=== PATIENT | female | born 1985 | race Caucasian/White ===

== ENCOUNTER 2016-12-27 22:34 | Emergency (ER) | payer MEDICAID ==
[~2016-12-27] VITALS: Ht 160 cm; Wt 88.0 kg
[2016-12-27 22:42] VITALS: BP 137/78; PULSE 88; RESP 18; TEMP 98.3; O2SAT 98
[2016-12-27] MEDS ORDERED: KETOROLAC TROMETHAMINE 60 MG/2 ML VIAL IM ONE (23:15)
[2016-12-27 23:30] VITALS: BP 137/78; PULSE 88; RESP 18; TEMP 98.3; O2SAT 98
== END 2016-12-27 23:30 | disposition home or self-care (01) ==
LOC: SED 22:34
DX: M25.531 Pain in right wrist (principal); E11.9 Type 2 diabetes mellitus without complications; E03.9 Hypothyroidism, unspecified
CPT/HCPCS: 96372; 99283; J1885

== ENCOUNTER 2018-12-29 12:38 | Emergency (ER) | payer MEDICAID ==
[~2018-12-29] VITALS: Ht 160 cm; Wt 83.5 kg
[2018-12-29 12:45] VITALS: BP_SYST 124
--- NOTE | 2018-12-29 12:50 | NUR ---
Patient to ER bed 02 to gown for evaluation. Side rails up.
--- NOTE | 2018-12-29 12:50 | NUR ---
patient AOx4 from home with c/o pelvic pain x 2 days. patient states she is 5 weeks , is medicated on psychotropic medications worried she may have a miscarriage. patient denies vaginal bleeding, n/v, breast tenderness or any other symptoms. patient admits to have diabeties, bipolar, major depressive disorder, schizophrenia. no other compalint or injury at this time.
--- NOTE | 2018-12-29 12:50 | NUR ---
ER Dr. Downing at bedside examining patient.
[2018-12-29] MEDS ORDERED: NACL 0.9% 1,000 ML IV ONE (13:15)
--- NOTE | 2018-12-29 13:20 | NUR ---
patient states she is feeling better. provided medication as ordered.
--- NOTE | 2018-12-29 13:20 | NUR ---
# 18 gauge angiocath placed to LAC. Use of asceptic technique. Opsite placed over site. Blood return noted. Blood for lab drawn from site. Flushed with 10 cc of normal saline. No evidence of infiltration noted. Patient tolerated well.
[2018-12-29 13:23] LABS: HEMATOCRIT 40.3 % (36-48); HEMOGLOBIN 13.4 g/dL (12.0-16.0); MEAN CORPUSCULAR HEMOGLOBIN 29 pg (27-31); MEAN CORPUSCULAR HGB CONC 33 % (32-36); MEAN CORPUSCULAR VOLUME 87 fL (79.0-98.0); PLATELET COUNT (AUTO) 231 K/uL (130-430); RED BLOOD CELL COUNT(AUTO) 4.63 MIL/uL (4.2-6.2); RED CELL DISTRIBUTION WIDTH 13.5 % (9.0-15.0); WHITE BLOOD COUNT (AUTO) 8.5 K/uL (4.8-10.8)
[2018-12-29 13:24] LABS: LYMPHOCYTES % (AUTO) 28.8 % (20.5-51.5); MONOCYTES % (AUTO) 7.4 % (1.7-9.3); NEUTROPHILS % (AUTO) 58.9 % (40.0-70.0)
[2018-12-29 13:25] LABS: BASOPHILS # (AUTO) 0.1 K/uL (0.0-0.2); BASOPHILS % (AUTO) 0.9 % (0.0-2.0); EOSINOPHILS # (AUTO) 0.3 K/uL (0.0-0.4); LYMPHOCYTES # (AUTO) 2.4 K/uL (1.0-5.5); MONOCYTES # (AUTO) 0.6 K/uL (0.0-1.0)
[2018-12-29 13:35] LABS: BILIRUBIN,URINE NEGATIVE (NEGATIVE); BLOOD, URINE NEGATIVE (NEGATIVE); CLARITY/URINE CLEAR (CLEAR); COLOR,URINE YELLOW (YELLOW); GLUCOSE,URINE 3+ (NEGATIVE); KETONES,URINE NEGATIVE (NEGATIVE); LEUKOCYTE ESTERASE ,URINE NEGATIVE (NEGATIVE); NITRITE, URINE NEGATIVE (NEGATIVE); PROTEIN URINE NEGATIVE (NEGATIVE); UROBILINOGEN,URINE 0.2 (0.2-1.0)
[2018-12-29 13:44] LABS: BACTERIA,URINE FEW /HPF (None Seen); RBC,URINE 0-3 /HPF (0-3); WBC,URINE 0-3 /HPF (0-3)
--- NOTE | 2018-12-29 14:20 | NUR ---
ER at bedside with patient providing more information regarding treatment plans and ultrasound information.
--- NOTE | 2018-12-29 15:49 | NUR ---
Went to discharge pt, not in bed. Found IV catheter in trash, catheter intact. Called pt, she states that she pulled out the IV and is on her way home. Asked her to return for discharge instructions and RX. Informed pt to follow up with PMD. Verbalized understanding, but states that she will not return to ED right now. Eloped at this time.
== END 2018-12-29 15:49 | disposition home or self-care (01) ==
LOC: SED 12:38
DX: O20.0 Threatened abortion (principal); E03.9 Hypothyroidism, unspecified; F32.9 Major depressive disorder, single episode, unspecified; E11.9 Type 2 diabetes mellitus without complications; R03.0 Elevated blood-pressure reading, without diagnosis of hypertension; Z3A.01 Less than 8 weeks gestation of pregnancy
CPT/HCPCS: 36415; 76856; 81000; 81025; 84702; 85025; 86900; 86901; 99284; J7030

== ENCOUNTER 2019-05-02 05:50 | Emergency (ER) | payer MEDICAID ==
[~2019-05-02] VITALS: Ht 160 cm; Wt 81.6 kg
[2019-05-02 05:50] VITALS: BP_SYST 157
--- NOTE | 2019-05-02 05:50 | NUR ---
Patient to ER bed 08 to gown for evaluation. Side rails up. Pt insists on being in the same room as her friend bc she has anxiety.
--- NOTE | 2019-05-02 05:55 | NUR ---
Dr. Finn notified about HR 133. Pt denies c/o C/P, feeling of palpitations or SOB. No new orders received.
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
--- NOTE | 2019-05-02 06:16 | NUR ---
ER at bedside examining patient.
[2019-05-02] MEDS ORDERED: CLINDAMYCIN PHOSPHATE 300 MG/2 ML VIAL IM ONE (06:30)
[2019-05-02 06:53] VITALS: BP_SYST 149
--- NOTE | 2019-05-02 06:54 | NUR ---
Patient given written and verbal discharge instructions and verbalizes understanding. ER MD discussed with patient the results and treatment provided. Patient in stable condition. ID arm band removed. Rx of CLEOCIN AND IBUPROFEN given. Patient educated on pain management and to follow up with PMD. Pain Scale 0/10. Opportunity for questions provided and answered. Medication side effect fact sheet provided.
== END 2019-05-02 06:54 | disposition home or self-care (01) ==
LOC: SED 05:50
DX: L03.114 Cellulitis of left upper limb (principal); F32.9 Major depressive disorder, single episode, unspecified; E11.9 Type 2 diabetes mellitus without complications; E03.9 Hypothyroidism, unspecified; F17.200 Nicotine dependence, unspecified, uncomplicated
CPT/HCPCS: 96372; 99283; J3490

== ENCOUNTER 2019-05-16 15:36 | Emergency (ER) | payer MEDICAID ==
[~2019-05-16] VITALS: Ht 160 cm; Wt 81.6 kg
[2019-05-16 15:49] VITALS: BP_SYST 131
[2019-05-16 16:39] LABS: BASOPHILS # (AUTO) 0.1 K/uL (0.0-0.2); EOSINOPHILS # (AUTO) 0.2 K/uL (0.0-0.4); EOSINOPHILS % (AUTO) 3.5 % (0.0-4.0); HEMATOCRIT 39.9 % (36-48); HEMOGLOBIN 13.3 g/dL (12.0-16.0); LYMPHOCYTES # (AUTO) 1.7 K/uL (1.0-5.5); LYMPHOCYTES % (AUTO) 24.8 % (20.5-51.5); MEAN CORPUSCULAR HEMOGLOBIN 31 pg (27-31); MEAN CORPUSCULAR HGB CONC 33 % (32-36); MEAN CORPUSCULAR VOLUME 92 fL (79.0-98.0); MONOCYTES # (AUTO) 0.4 K/uL (0.0-1.0); MONOCYTES % (AUTO) 5.4 % (1.7-9.3); NEUTROPHILS # (AUTO) 4.6 K/uL (1.8-7.7); NEUTROPHILS % (AUTO) 65.3 % (40.0-70.0); PLATELET COUNT (AUTO) 285 K/uL (130-430); RED BLOOD CELL COUNT(AUTO) 4.36 MIL/uL (4.2-6.2); RED CELL DISTRIBUTION WIDTH 13.5 % (9.0-15.0)
[2019-05-16 16:50] LABS: CALCIUM 8.3 mg/dL (8.4-11.0); CREATININE 0.55 mg/dL (0.55-1.30); POTASSIUM 4.4 mmol/L (3.5-5.1)
[2019-05-16 16:55] LABS: ALBUMIN 2.7 g/dL (3.4-4.8); TOTAL BILIRUBIN 0.3 mg/dL (0.0-1.0)
--- NOTE | 2019-05-16 17:57 | NUR ---
Patient to ER bed 4 to gown for evaluation. Side rails up. Report given to Milind MENDIOLA.
--- NOTE | 2019-05-16 18:00 | NUR ---
Pt c/o LAC wound RH cellulitis.
--- NOTE | 2019-05-16 18:15 | NUR ---
ER Dr. Carrillo at bedside examining patient.
[2019-05-16] MEDS ORDERED: ceFAZolin SODIUM 1 GM VIAL IM ONE (18:30)
--- NOTE | 2019-05-16 19:00 | NUR ---
Pt endorsed to Abdirashid MENDIOLA
[2019-05-16 19:20] VITALS: BP_SYST 131
--- NOTE | 2019-05-16 19:20 | NUR ---
Patient given written and verbal discharge instructions and verbalizes understanding. ER MD discussed with patient the results and treatment provided. Patient in stable condition. ID arm band removed. Rx of Bactrim given. Patient educated on pain management and to follow up with PMD. Pain Scale 0/10. Opportunity for questions provided and answered. Medication side effect fact sheet provided.
== END 2019-05-16 19:20 | disposition home or self-care (01) ==
LOC: SED 15:36
DX: S61.402A Unspecified open wound of left hand, initial encounter (principal); L03.113 Cellulitis of right upper limb; E11.9 Type 2 diabetes mellitus without complications; E03.9 Hypothyroidism, unspecified; X58.XXXA Exposure to other specified factors, initial encounter; Y93.89 Activity, other specified; Y92.89 Other specified places as the place of occurrence of the external cause; Y99.8 Other external cause status
CPT/HCPCS: 36415; 73070; 73120; 80053; 81025; 83605; 85025; 96372; 99284; J0690

== ENCOUNTER 2019-08-07 16:27 | Emergency (ER) | payer MEDICAID ==
[~2019-08-07] VITALS: Ht 160 cm; Wt 68.0 kg
[2019-08-07 16:40] VITALS: BP_SYST 144
[2019-08-07] MEDS ORDERED: NACL 0.9% 1,000 ML IV ONE (17:00)
[2019-08-07] MEDS ORDERED: ONDANSETRON HCL 4 MG/2 ML VIAL IVP ONE (17:00)
[2019-08-07 17:22] LABS: BASOPHILS # (AUTO) 0.1 K/uL (0.0-0.2); BASOPHILS % (AUTO) 0.7 % (0.0-2.0); EOSINOPHILS # (AUTO) 0.3 K/uL (0.0-0.4); HEMATOCRIT 39.2 % (36-48); HEMOGLOBIN 13.2 g/dL (12.0-16.0); LYMPHOCYTES # (AUTO) 1.9 K/uL (1.0-5.5); LYMPHOCYTES % (AUTO) 20.7 % (20.5-51.5); MEAN CORPUSCULAR HEMOGLOBIN 30 pg (27-31); MEAN CORPUSCULAR HGB CONC 34 % (32-36); MEAN CORPUSCULAR VOLUME 89 fL (79.0-98.0); MONOCYTES # (AUTO) 0.7 K/uL (0.0-1.0); MONOCYTES % (AUTO) 7.6 % (1.7-9.3); NEUTROPHILS # (AUTO) 6.3 K/uL (1.8-7.7); PLATELET COUNT (AUTO) 247 K/uL (130-430); RED BLOOD CELL COUNT(AUTO) 4.38 MIL/uL (4.2-6.2); WHITE BLOOD COUNT (AUTO) 9.2 K/uL (4.8-10.8)
[2019-08-07] MEDS ORDERED: INSULIN REGULAR, HUMAN 10 UNITS/0.1 ML INJ IVP ONE (17:30)
[2019-08-07 17:33] LABS: CALCIUM 9.1 mg/dL (8.4-11.0)
[2019-08-07 17:35] LABS: ALBUMIN 3.4 g/dL (3.4-4.8); CREATININE 0.78 mg/dL (0.55-1.30); POTASSIUM 3.8 mmol/L (3.5-5.1); TOTAL BILIRUBIN 0.5 mg/dL (0.0-1.0)
[2019-08-07] MEDS ORDERED: BACITRACIN 1 GM OINT TP ONE (18:05)
[2019-08-07 18:30] VITALS: BP_SYST 111
== END 2019-08-07 18:30 | disposition home or self-care (01) ==
LOC: SED 16:27
DX: L08.89 Other specified local infections of the skin and subcutaneous tissue (principal); E11.65 Type 2 diabetes mellitus with hyperglycemia; F17.200 Nicotine dependence, unspecified, uncomplicated; E03.9 Hypothyroidism, unspecified; F32.9 Major depressive disorder, single episode, unspecified; F20.9 Schizophrenia, unspecified; Z71.6 Tobacco abuse counseling
CPT/HCPCS: 36415; 80053; 82962; 83605; 85025; 87040; 96365; 96375; 99283; J1815; J1956; J2405; J7030

== ENCOUNTER 2020-10-24 13:44 | Emergency (ER) | payer MEDICAID ==
[~2020-10-24] VITALS: Ht 160 cm; Wt 81.6 kg
[2020-10-24 14:06] VITALS: BP_SYST 147
--- NOTE | 2020-10-24 14:57 | NUR ---
Ros soria in EDM - 10/24/20 at 1502 by [email or web address] Pt brought by self , A&Ox4, pt presents to ER with cough , congestion, exposed to covid , skin pink and warm, cap refill <3, VSS
--- NOTE | 2020-10-24 14:57 | NUR ---
Pt brought by self, A&Ox4, pt presents to ER with facial swelling x 3 days, skin pink and warm, cap refill <3, VSS.
--- NOTE | 2020-10-24 14:57 | NUR ---
Patient triaged and placed in waiting room. VSS and patient appears in no acute distress at this time. Accompanied by self , awaiting available bed, and MD notified of need for MSE.
--- NOTE | 2020-10-24 14:58 | NUR ---
Dr Finn evaluating patient at bedside .
[2020-10-24 15:39] LABS: BASOPHILS # (AUTO) 0.4 K/uL (0.0-0.2); BASOPHILS % (AUTO) 3.8 % (0.0-2.0); EOSINOPHILS # (AUTO) 0.2 K/uL (0.0-0.4); EOSINOPHILS % (AUTO) 2.2 % (0.0-4.0); HEMATOCRIT 38.7 % (36-48); HEMOGLOBIN 13.3 g/dL (12.0-16.0); LYMPHOCYTES # (AUTO) 1.1 K/uL (1.0-5.5); LYMPHOCYTES % (AUTO) 9.7 % (20.5-51.5); MEAN CORPUSCULAR HEMOGLOBIN 31 pg (27-31); MEAN CORPUSCULAR HGB CONC 34 % (32-36); MEAN CORPUSCULAR VOLUME 89 fL (79.0-98.0); MONOCYTES # (AUTO) 0.4 K/uL (0.0-1.0); MONOCYTES % (AUTO) 3.8 % (1.7-9.3); NEUTROPHILS % (AUTO) 80.5 % (40.0-70.0); PLATELET COUNT (AUTO) 257 K/uL (130-430); RED BLOOD CELL COUNT(AUTO) 4.34 MIL/uL (4.2-6.2); RED CELL DISTRIBUTION WIDTH 13.5 % (9.0-15.0); WHITE BLOOD COUNT (AUTO) 11.2 K/uL (4.8-10.8)
[2020-10-24 16:13] LABS: ANION GAP 7 (5-15); CALCIUM 8.6 mg/dL (8.4-11.0); CHLORIDE 96 mmol/L (98-107); CREATININE 1.05 mg/dL (0.55-1.30); GLUCOSE 365 mg/dL (70-99); SODIUM SERUM 133 mmol/L (136-145); UREA NITROGEN, BLOOD 11 mg/dL (8-21)
[2020-10-24] MEDS ORDERED: CLIN300C11 PO (16:17)
[2020-10-24 16:18] LABS: ALANINE AMINOTRANSFERASE 39 U/L (12-78); ASPARTATE AMINOTRANSFERASE 18 U/L (10-37); TOTAL BILIRUBIN 0.5 mg/dL (0.0-1.0)
[2020-10-24 16:20] LABS: INR 0.9 (0.8-1.2); PROTHROMBIN TIME 9.4 SECS (9.5-12.5)
[2020-10-24 16:23] LABS: GFR AFRICAN AMERICAN 76 mL/min (>90)
[2020-10-24 16:41] LABS: C-REACTIVE PROTEIN QUANT 3.5 mg/dL (0-0.5)
[2020-10-24 16:46] VITALS: BP_SYST 147
[2020-10-24 16:46] LABS: ACETONE, SERUM NEGATIVE (NEGATIVE)
--- NOTE | 2020-10-24 16:46 | NUR ---
Patient given written and verbal discharge instructions and verbalizes understanding. ER MD SAWANT discussed with patient the results and treatment provided. Patient in stable condition. ID arm band removed. IV catheter removed intact and dressing applied, no active bleeding. Rx of CLYNDAMYCIN given. Patient educated on pain management and to follow up with PMD. Opportunity for questions provided and answered. Medication side effect fact sheet provided.
== END 2020-10-24 16:46 | disposition home or self-care (01) ==
LOC: SED 13:44
DX: K12.1 Other forms of stomatitis (principal); E11.65 Type 2 diabetes mellitus with hyperglycemia; E03.9 Hypothyroidism, unspecified
CPT/HCPCS: 36415; 80053; 82009-TC; 83605; 85025; 85610-TC; 85730-TC; 86140; 99283